=== PATIENT | female | born 1980 | race Caucasian/White ===

== ENCOUNTER 2021-05-20 09:45 | Outpatient (CLI) | payer BC, SELFPAY ==
--- NOTE | ~2021-05-20 | MM_ITS ---
EXAMINATION: MM screening rico BI w steffi HISTORY: Screening TECHNIQUE: Craniocaudal and mediolateral oblique 3-D tomosynthesis images were obtained and synthetic 2-D images were generated. CAD analysis was submitted and interpreted. COMPARISON: No prior mammogram is available for comparison at this institution. BREAST PARENCHYMAL COMPOSITION: The breasts are extremely dense, which lowers the sensitivity of mamm ography. FINDINGS: There is no evidence of suspicious mass, calcification, or architectural distortion to sugg est malignancy in either breast. There has been no suspicious interval change. IMPRESSION: 1. No mammographic evidence of malignancy. 2. Recommend routine screening mammography in one year. BI-RADS Category 1: Negative Reviewed, dictated and finalized at location A.
== END 2021-05-20 09:46 | disposition home or self-care (01) ==
LOC: ANHIMG 09:47
PROVIDERS: PCP Internal Medicine; Visit Provider Obstetrics & Gynecology
DX: Z12.31 Encounter for screening mammogram for malignant neoplasm of breast (principal)
CPT/HCPCS: 77063; 77067

== ENCOUNTER 2021-11-27 15:17 | Outpatient (CLI) | payer BC, SELFPAY ==
--- NOTE | ~2021-11-27 | US_ITS ---
US pelvic complete w TV DATE: 11/27/2021 16:23 INDICATION: Hypertrophic uterus TECHNIQUE: Real-time imaging via transabdominal and transvaginal approaches COMPARISON: None FINDINGS: The uterus measures 7.5 centers height, 4.7 cm AP and 5 cm transverse dimension. The centra l endometrial echo complex measures 10 mm AP dimension. There is a 6.2 x 8.2 x 5.7 cm heterogeneous complex largely solid mass with occasional cystic areas i n the right adnexal area; differential diagnosis includes large serosal fibroid versus right ovarian mass lesion.. Left ovary 2.2 x 2.2 x 2.4 cm with vascular flow. No free pelvic fluid collection is noted. IMPRESSION: 6.2 x 8.2 cm heterogeneous complex largely solid mass with occasional cystic areas in the right adnexal area; diffusion diagnosis includes cerebral sulci fibroid versus ovarian mass lesion. Consider further evaluation with CT abdomen pelvis examination or MRI pelvis. Reviewed, dictated and finalized at [facility]. Reviewed, dictated and finalized at location [facility]. HOUSE SPECIALIST IMPRESSION: 6.2 x 8.2 cm heterogeneous complex largely solid mass with occasion al cystic areas in the right adnexal area; diffusion diagnosis includes cerebra l sulci fibroid versus ovarian mass lesion. Consider further evaluation with CT abdomen pelvis examination or MRI pelvis.
== END 2021-11-27 15:18 | disposition home or self-care (01) ==
PROVIDERS: PCP Internal Medicine; Visit Provider Obstetrics & Gynecology
DX: N85.2 Hypertrophy of uterus (principal); N83.8 Other noninflammatory disorders of ovary, fallopian tube and broad ligament
CPT/HCPCS: 76830; 76856

== ENCOUNTER 2022-01-23 10:07 | Outpatient (CLI) | payer BC, SELFPAY | END 2022-01-23 10:08 | disposition home or self-care (01) | LOC: ANHLAB 10:09 | PROVIDERS: PCP Internal Medicine; Visit Provider Obstetrics & Gynecology | DX: Z01.818 Encounter for other preprocedural examination (principal); R10.2 Pelvic and perineal pain | CPT/HCPCS: 36415; 86850; 86900; 86901 ==

== ENCOUNTER 2022-01-27 08:34 | Inpatient (IN) | payer BC, SELFPAY ==
[2022-01-22 16:19] VITALS: BMI 22.2
--- NOTE | 2022-01-22 16:44 | PC.NURSE ---
Report to the Outpatient Waiting Room, entrance under the green pavilion located off [facility], at time 0800 on date 01/27/22. OR Time: 1000____. - You and your visitor will be asked a series of questions to screen for COVID 19 for your protection. - A mask is required within the hospital. Preoperative COVID Testing Requirements: No COVID Test needed if: (proof is required; if not received patient will have Rapid Test prior to entry) - Patient has received COVID Vaccine at least 14 days prior to procedure date or - Patient has positive COVID test result within last 90 days of surgery date. COVID Test needed if above criteria is not met If not COVID vaccinated a COVID test must be conducted within 72 hours of surgery and patient is asked to isolate self from time of testing until procedure. You will go to the [facility] for your COVID testing. The [facility] Testing site is located at the corner of [address] [facility]. You will only be called if COVID results are positive and your surgeon may reschedule your elective surgery date. Patients may have clear liquids (water, carbonated beverages, clear teas, apple juice) until 3 hours prior to surgery with a maximum of 20 ounces. - No food from midnight until time of surgery - Infants may have breast milk until 4 hours before surgery, formula 6 hours prior to surgery. - Children will be allowed to drink immediately following surgery. If applicable, please bring a bottle or sippy cup to assist with drinking. Juice, water, soda, and popsicles are readily available. For infants on formula, please bring formula the day of surgery. Pacifiers are allowed. Take the following medications with a SIP of water the morning of surgery: n/a Medications to discontinue per physician multivitamin Date to take last dose 01/24/22 Please no make-up, nail trinidadian, hairspray, perfume, deodorant, or body powder the day of surgery. No jewelry (including any body piercings) or valuables the day of surgery, leave them at home. Please take a shower or bath the night before, or the morning of, surgery with an antibacterial soap. Wear comfortable, loose fitting clothing. Children are encouraged to wear pajamas. - Jewelry must be removed prior to entering the operating room. Rings and piercings that are not removed may be cut off. - The hospital will not accept responsibility for valuables. - Please leave all valuables, including medications, at home the day of surgery. If you are going home after surgery, a licensed wrecking car driver must drive you home. - NO public transportation without another adult. - We recommend that an adult stay with you for 24 hours following discharge. - We also recommend that you do not drive, make important decision, drink alcoholic beverages, or take any drugs that were not prescribed by your health care provider for at least 24 hours after your discharge time. For Pediatric surgeries, we recommend two adults accompany the child home (only one inside the building at this time). One visitor will be allowed to accompany the patient into the hospital. Patients visitor will be instructed to remain with patient at all times or leave the building. We will allow the visitor to come back to the postoperative area when patient is ready. Follow any additional instructions given to you from your surgeon. Telephone instructions given to Ciara Gao and asked if any additional questions and then verbalized understanding. Patient advised to call surgeon office or pre surgery nurse liaison [phone] if any additional questions.
--- NOTE | 2022-01-26 07:11 | PM.IMHP ---
H&P: HPI History of Present Illness Date/Time: 01/26/22 07:11 Patient with history of increasing pain which started in October. The pain is on the left side. She also had been experiencing urinary pressure. No dysuria. Had some episodes of spotting premenstraully in the past. On exam the uterus was palpated irregular. Pelvic ultrasound showed a mass but could not differentiate if ovarian or uterine origin. Ca125 normal. Subsequent MRI showed 8cm pedunculated fibroid. She continues to have intermittent pain, cramping and pressure on bladder. She has been informed of options of fibroid embolization, myomectomy hysterectomy. She did get an endometrial biopsy due to spotting and it showed a possible polyp. She has been recommended for D and C hysteroscopy and removal of endometrial polyp. Chief Complaint: fibroid causing pain Review of Systems Review of Systems: All systems reviewed & are unremarkable except as noted in HPI and below Cardiovascular: Cardiovascular: Reports no additional cardiovascular complaints, Denies chest pain and Denies dyspnea Respiratory: Respiratory: Reports no additional respiratory complaints and Denies dyspnea Gastrointestinal: Gastrointestinal: Reports abdominal pain, Denies change in bowel habits, Denies diarrhea, Denies nausea and Denies vomiting Genitourinary: Genitourinary: Reports pelvic pain Musculoskeletal: Musculoskeletal: Reports back pain Integumentary/Breasts: Skin/Breast: Reports system reviewed and no additional complaints, except as docu Neurologic: Reports system reviewed and no additional complaints, except as documented [facility], [facility] Family History Family History Father Hypertension Grandparent Family history of coronary artery disease Diabetes mellitus Other Family history of cardiovascular disease Family history of malignant neoplasm of breast Social History Social History Smoking status: Never smoker Second hand tobacco smoke exposure: No Alcohol intake: current Substance use: never Living arrangements: with family Spiritual care concerns: No Meds Home Medications and Allergies Home Medications Medication Instructions Recorded Confirmed Type multivit with min-folic acid 1 tablet PO DAILY 01/22/22 01/22/22 History [Adult One Daily Multivitamin] Allergies Allergy/AdvReac Type Severity Reaction Status Date / Time No Known Allergies Allergy Verified 01/14/22 11:21 Exam Const: Orientation/consciousness: oriented to person and oriented to place HENMT: Head: normal to inspection Eyes: General: appearance normal, both eyes and all related structures Resp: Effort & Inspection: normal respiratory effort Auscultation: clear to auscultation bilaterally Cardio: Rate: regular rate Rhythm: regular rhythm GI: Inspection: normal to inspection GI Palp: No Rebound tenderness present : External Female Exam: normal external appearance Speculum Exam - Vagina: normal appearance of the vagina Speculum Exam - Cervix: normal appearance of the cervix Bimanual exam- vagina & uterus: other (uterus irreg shape 12-14 week) Bimanual Exam- Adnexa, other: other (nontender bilateral) Neuro: General: oriented to person and oriented to place Cognition (Neuro): normal cognition Extrem: General: normal to inspection Psych: Appearance: grossly normal and well kempt Assessment and Plan Assessment and plan (1) Fibroid uterus: Code(s): D25.9 - Leiomyoma of uterus, unspecified Status: Acute Assessment and Plan: Plan for abdominal myomectomy. (2) Endometrial polyp: Code(s): N84.0 - Polyp of corpus uteri Status: Acute Assessment and Plan: Diagnostic hysteroscopy and dilation and currettage and possibly myosure of endometrial lesion if necessary.
[2022-01-27] VITALS (12 sets, daily range): BP systolic 80–108; BP diastolic 49–68; PULSE 52–77; RESP 10–18; TEMP 36–36.9; O2SAT 98–100
[2022-01-27] MEDS: ACETAMINOPHEN 500 MG TABLET 1000 MG PO (08:11)
[2022-01-27] MEDS: KETOROLAC 15 MG/ML VIAL (*BKC) IV PUSH (08:51)
--- NOTE | 2022-01-27 08:59 | WPDHPUPDATE1 ---
History and Physical Update Update Date/Time: 01/27/22 08:59 History and Physical has been reviewed, including an updated exam of the patient. There are NO changes in the patient's condition. Risks, benefits, and alternatives have been discussed and questions answered. Patient agrees to proceed with procedure.
[2022-01-27] MEDS: LACTATED RINGERS 1,000 ML 30 ML IV CONT ×2 (09:00→11:55)
--- NOTE | 2022-01-27 09:57 | WPDANESEPPF ---
Anes - Initial Pre Proc Eval Procedure: Operation Date: 01/27/22 10:00 Proposed Procedures p Abdominal Myomectomy, - Fermin Ceja MD s Hysteroscopy, Dilatation and Curettage, Possible Myosure - Fermin Ceja MD Date/Time: 01/27/22 09:57 Surgeon: Fermin Ceja MD Pre Op Diagnosis: symptomatic fibroid uterus, endometrial polyp Patient Data Age: 41 Gender: F Height: 1.6 m Weight: 51.3 kg Last Vital Signs Temp 98 F 01/27/22 08:48 Pulse 74 01/27/22 08:48 Resp 16 01/27/22 08:48 BP 100/60 01/27/22 08:48 Pulse Ox 100 01/27/22 08:48 Allergies Allergy/AdvReac Type Severity Reaction Status Date / Time No Known Allergies Allergy Verified 01/27/22 08:08 Home Medications Medication Instructions Recorded Confirmed Type multivit with min-folic acid 1 tablet PO DAILY 01/22/22 01/27/22 History [Adult One Daily Multivitamin] Patient hx anesthesia problems: none Family hx anesthesia problems: none Results Review: All pre-operative results and documents have been reviewed as part of the pre-operative evaluation. [facility] Past Medical History Medical History (Updated 01/27/22 @ 09:58 by Kingsley Ron MD) H/O bronchitis Family History Family History Father Hypertension Grandparent Family history of coronary artery disease Diabetes mellitus Other Family history of cardiovascular disease Family history of malignant neoplasm of breast Social History Social History Smoking status: Never smoker Second hand tobacco smoke exposure: No Alcohol intake: current Substance use: never Living arrangements: with family Spiritual care concerns: No Anes - Eval Final PreProcedure Day of Procedure 01/27/22 09:57 Patient weight: normal Heart: regular rate and rhythm Lungs: clear to auscultation Airway: Mallampati scale class II Neurological: alert and oriented Last oral intake: >/= 8 hours ASA classification: II Emergent: no Anesthetic plan: proceed Anesthesia type and monitoring: general ETT and standard monitoring Results Review: All pre-operative results and documents have been reviewed as part of the pre-operative evaluation. Informed Consent: The patient's anesthetic plan and its attendant risks and benefits were discussed with the patient/family/POA. Questions were solicited and answers provided to the satisfaction of the patient/family/POA.
[2022-01-27] MEDS: ceFAZolin 2 GM/D5W 50 ML 2 GM/50 ML BAG IVPB (10:23)
[2022-01-27] MEDS: VASOPRESSIN INJ 20 UNITS/ML VIAL XX (10:50)
--- NOTE | 2022-01-27 12:08 | PM.OP ---
Procedure Note - Brief Procedure Note - Brief Date of procedure: 01/27/22 Pre-op diagnosis: symptomatic fibroid uterus, endometrial polyp Post-op diagnosis: Same Procedure performed: 1. Abdominal myomectomy Anesthesia: GETA Surgeon: Fermin Ceja MD Estimated blood loss (mL): 20 Drains: No Packing: No Pathology: Yes (1. Pedunculated fibroid measuring approximately 8.5cm 2. Endometrial currettings.) Complications: No immediate complications Condition: Stable Disposition: PACU
[2022-01-27] MEDS: fentaNYL CITRATE INJ (*CRX) 100 MCG/2 ML VIAL 25 MCG IV PUSH ×4 (12:14→13:26)
--- NOTE | 2022-01-27 12:42 | SUR.PHASEI ---
1235: Called office and they are close until 1pm for lunch. Left a message on cell stating, I need a transfer order.
--- NOTE | 2022-01-27 13:38 | PC.NURSE ---
This patient, Ciara Gao, was received from PACU per bed to room 279. Patient/family oriented to unit policies and routines
--- NOTE | 2022-01-27 15:19 | W.PM.PROC2 ---
Procedure Note - Detailed Date of Procedure 01/27/22 Pre-op Diagnosis symptomatic fibroid uterus, endometrial polyp Post-op Diagnosis Same Procedure Performed 1. Abdominal myomectomy 2. Diagnostic hysteroscopy and dilation and curettage Surgeon Fermin Ceja MD Anesthesia General Indications patient with pelvic pain pain starting in October which was moderate. She had a subsequent pelvic ultrasound due to feeling a possibly enlarged ovary and the ultrasound could not determine if she had a fibroid or complex ovarian cyst. She had a subsequent MRI which showed a pedunculated fibroid approximately 8 cm. She continues to have some intermittent moderate pain and has opted to get it removed. She also had an endometrial biopsy as part of her workup due to having some spotting and it showed a possible endometrial polyp and she was recommended for a hysteroscopy and removal of endometrial polyp if present and dilation and curettage. Findings 8-1/2 cm growth which looks like a necrotic somewhat soft fibroid coming off the left anterior uterus which had a vascular pedicle attached to it. The right and left ovary were normal the right and left fallopian tubes were normal the rest of the uterus was normal. On the hysteroscopy the uterus sounded to 7.5cm the cavity appeared normal there was an area anterior uterus that appeared to have more of a thicker proliferative endometrium then the rest of the cavity. Moderate tissue was obtained with the sharp curettage. Description of Procedure After informed consent was obtained patient was taken to the operating room and general endotracheal anesthesia was administered. An exam under anesthesia was performed and a mobile mass at the top of the uterus was palpated. No adnexal masses palpated. She was prepped and draped in sterile fashion and placed in low lithotomy position. Attention was turned to the vagina speculum was inserted single-tooth tenaculum placed on the anterior lip of the cervix and acorn uterine manipulator was placed into the cervical canal. A Henson catheter at this time was placed by the nurse. Using a new sterile gloves attention was turned to the abdomen a Pfannenstiel skin incision was made with the scalpel the subcutaneous tissue was dissected down with to the fascia. The fascia was incised in the midline and extended bilaterally with Paz scissors. The fascia was from the rectus muscle superiorly and inferiorly bluntly and sharply with the cautery. The peritoneum was tented up with Sepideh clamps and Metzenbaum scissors were used to incise the peritoneum sharply. This was done at the anterior layer the posterior layer was entered bluntly. The pelvic organs were visualized. A wet sponge was used to retract the intestines in order to visualize the uterus and the growth. The uterus was visualized and there was noted to be the mass coming off of the left side of the uterus with a pedicle. The side of attachment and the pedicle was firm at the base. The rest of the pelvic organs were visualized. Two clamps were placed at the base of the pedicle and the mass was excised with cautery intact. Two Fabien stitches of 0 Vicryl were used to ligate the pedicle. Hemostasis was noted at the pedicle. The lap was removed from the abdomen.The pelvis was irrigated. The muscle bellies approximated to the midline well. Hemostasis was obtained at the muscle bellies with cautery. The fascia was closed in a running fashion with 0 Vicryl. The subcutaneous tissue was irrigated hemostasis obtained with cautery the subcutaneous tissue was approximated with 3 0 Vicryl. The skin incision was closed in a subcuticular fashion with 4 O Vicryl. Dermabond was applied to the incision. The sponge count was correct. Attention was then turned to the vagina. Speculum was inserted. The acorn uterine manipulator was removed. The Henson catheter was removed. The cervix was dilated to an 8 Raymond dilator. Th
[2022-01-27] MEDS: KETOROLAC 30 MG/ML VIAL (*BKC) IV PUSH ×2 (15:23→21:10)
[2022-01-27] MEDS: DEXTROSE 5%/0.45% SOD CHL 1,000 ML 125 ML (15:25)
[2022-01-28] MEDS: KETOROLAC 30 MG/ML VIAL (*BKC) IV PUSH (03:12)
[2022-01-28 03:15] VITALS: BP 93/52; PULSE 75; RESP 16; TEMP 36.9; O2SAT 100
--- NOTE | 2022-01-28 07:20 | WPDANESPN ---
Anes - Prog Note Post-Op Date/Time: 01/28/22 07:20 Cardiovascular status: normal Respiratory status: normal Airway patency: baseline Mental status: baseline Post-Op hydration status: normal Vital Signs: Last Vital Signs Temp 36.9 C 01/28/22 03:15 Pulse 75 01/28/22 03:15 Resp 16 01/28/22 03:15 BP 93/52 L 01/28/22 03:15 Pulse Ox 100 01/28/22 03:15 Pain Score (VAS): 0 I/O: Intake & Output 01/27/22 01/27/22 01/28/22 15:59 23:59 07:59 Intake Total 850 2220 Output Total 600 Balance 850 1620 Post-procedural complaints: none Patient Feedback: Patient satisfied with anesthetic care.
[2022-01-28 07:30] VITALS: BP 93/62; PULSE 72; RESP 18; TEMP 36.6; O2SAT 99
--- NOTE | 2022-01-28 08:41 | PM.GYNPNOP ---
COLD ROLLER - A/P Assessment and plan (1) Status post myomectomy: Code(s): Z98.890 - Other specified postprocedural states Status: Acute Assessment and Plan: she is doing well. Encourage ambulation. Will see how she does with oral pain medication. Anticipate discharge later today. Postoperative Procedures: Procedures Operation Date: 01/27/22 10:00 Actual Procedure Side Surgeon p Abdominal Myomectomy Not Applicable Fermin Ceja MD s Hysteroscopy, Dilatation and Curettage, Possible Myosure Not Applicable Fermin Ceja MD Time Spent With Patient Time: Total time spent is greater than 50% in coordination of care (as documented) at patient's floor/unit and/or counseling patient: Time with patient: less than 15 minutes COLD ROLLER- PN:Subj Post-Op Subjective Date/time seen: 01/28/22 08:41 Interval history: She has set up in a chair. She reports positive flatus. She has had a good pain control with the IV pain medicines. Has urinated without problems. Mild spotting. No lightheadedness or did she has ambulated in the room without problem. Subjective: pain is well controlled and patient is tolerating oral intake Review of Systems Review of Systems: All systems reviewed & are unremarkable except as noted in HPI and below Cardiovascular: Cardiovascular: Reports no additional cardiovascular complaints Respiratory: Respiratory: Reports no additional respiratory complaints Gastrointestinal: Gastrointestinal: Reports belching, Denies nausea and Denies vomiting Genitourinary: Genitourinary: Reports no additional female genitourinary complaints Musculoskeletal: Musculoskeletal: Reports no additional musculoskeletal complaints Exam Const: General: comfortable and no acute distress Orientation/consciousness: oriented to person, oriented to place and oriented to time Resp: Auscultation: clear to auscultation bilaterally Cardio: Rate: regular rate Rhythm: regular rhythm GI: GI Palp: Yes Soft to palpation and No Tenderness to palpation present (GI) Auscultation: normal bowel sounds Other: Incision healing well Neuro: General: oriented to person, oriented to place and oriented to time Extrem: General: no calf tenderness Psych: Mental Status: mental status grossly normal COLD ROLLER - PN: Obj Data Vital Signs Vital Signs: Vital Signs - 24 hr 01/27/22 08:48 01/27/22 11:55 01/27/22 12:10 Temperature 98 F 97.5 F L Pulse Rate 74 77 52 L Respiratory Rate 16 11 L 10 L Blood Pressure 100/60 108/68 84/49 L Pulse Oximetry 100 100 100 01/27/22 12:25 01/27/22 12:40 01/27/22 12:55 Temperature Pulse Rate 62 64 55 L Respiratory Rate 18 12 10 L Blood Pressure 89/60 L 93/50 L 83/59 L Pulse Oximetry 100 99 98 01/27/22 13:10 01/27/22 13:25 01/27/22 13:45 Temperature 96.8 F L Pulse Rate 55 L 54 L 56 L Respiratory Rate 12 10 L 18 Blood Pressure 92/56 L 88/55 L 80/52 L Pulse Oximetry 99 99 100 01/27/22 17:15 01/27/22 19:00 01/27/22 23:50 Temperature 98.2 F 98.5 F 98.4 F Pulse Rate 68 68 55 L Respiratory Rate 16 16 16 Blood Pressure 85/54 L 92/62 L 83/54 L Pulse Oximetry 98 100 100 01/28/22 03:15 01/28/22 07:30 Temperature 98.5 F 97.9 F Pulse Rate 75 72 Respiratory Rate 16 18 Blood Pressure 93/52 L 93/62 L Pulse Oximetry 100 99 Intake/Output Intake/Output: Intake & Output 01/25/22 01/26/22 01/27/22 01/28/22 23:59 23:59 23:59 23:59 Intake Total 3070 Output Total 600 Balance 2470 Meds/Results Medications: Active Medications Generic Name Dose Route Start Last Admin Trade Name Freq PRN Reason Stop Dose Admin Hydrocodone Bitart/Acetaminophen 1 tab 01/27/22 12:10 Hydrocodone/Acetaminophen (*Crx) 5-325 Mg Tablet PO Q3H PRN Pain Rated 5 or Less Ketorolac Tromethamine 30 mg 01/27/22 12:10 01/28/22 03:12 Ketorolac 30 Mg/Ml Vial (*Bkc) IV PUSH 02/01/22 12:09 30 mg Q6H PRN Administration Pain Rated 4-6 Naloxone HCl 0.1 mg 03
[2022-01-28] MEDS: IBUPROFEN 600 MG TABLET PO (09:30)
[2022-01-28] MEDS: HYDROcodone/acetaminophen (*CRX) 5-325 MG TABLET 1 TAB PO ×2 (09:32→13:16)
--- NOTE | 2022-01-28 12:20 | PM.DS ---
DS: Admitting Diagnosis Discharge Date 01/28/22 Admitting Diagnosis 1. Symptomatic fibroid uterus 2. Endometrial polyp DS: Discharge Diagnosis Discharge Diagnosis (1) Fibroid uterus: Code(s): D25.9 - Leiomyoma of uterus, unspecified Status: Acute (2) Endometrial polyp: Code(s): N84.0 - Polyp of corpus uteri Status: Acute DS: Summary Hospital Course Reason for hospitalization: Myomectomy procedure Hospital Course: patient admitted on 01/27/2022 for planned abdominal myomectomy and hysteroscopy D&C possible MyoSure. She underwent an uncomplicated abdominal myomectomy with removal of a large pedunculated fibroid. Hysteroscopy was uncomplicated. Postoperatively the patient did well on the day of surgery she started tolerating liquids. She did ambulate spontaneously within 8 hours of surgery. Had adequate intake of regular food on postop day 1 was ambulating without problems on postop day 1 had adequate pain control with her pain medication. Positive flatus. She was doing well and was discharged home on postop day 1. Discharge precautions discussed. Time spent discussing smoking cessation with patient: 3 to 10 minutes Time Spent with Patient Time attestation: Total time spent providing and/or coordinating discharge services: Exam Const: General: comfortable and no acute distress HENMT: Head: normal to inspection Chest: Other: heart Regular rate rhythm Resp: Effort & Inspection: normal respiratory effort Auscultation: clear to auscultation bilaterally GI: Other: incision clean dry and intact Neuro: General: oriented to person, oriented to place and oriented to time Extrem: General: normal to inspection ( no calf tenderness no swelling.) Psych: Appearance: grossly normal DS: Data Data Completed and Pending Pending studies at discharge: Pending at discharge 01/27/22 11:53 Surgical [PTH] Routine Surgical [PTH] Routine Discharge Plan Discharge Attending physician on discharge: Fermin Ceja Consulting providers: Kingsley Ron Discharging Clinician: Fermin Ceja Anticipated Discharge Date/Time: 01/28/22 12:16 Patient Disposition: Home, Self-Care Activity: may shower, no straining and may drive after 2 weeks Diet: regular Discharge Instructions: no lifting. May take [id number] ibuprofen for pain. Take prescription pain medicine for pain greater than 5 out of 10. Call for fever which is temperature over 100.4. Call for any spreading redness or any drainage from incision. Call for any leg pain or redness. Call if any persistent nausea or vomiting. May take MiraLax if having trouble having a bowel movement. Patient Instructions: Antibiotic Form Stand Alone Forms: General Discharge Information Follow-up/Referrals: Fermin Ceja MD [Physician] - 1 Week Discharge Medications: New hydrocodone-acetaminophen 5-325 mg Tablet 1 tablet PO Q3H PRN (Reason: pain) Qty: 25 RF: 0 Continued multivit with min-folic acid [Adult One Daily Multivitamin] 0.4 mg Tablet 1 tablet PO DAILY RF: 0 Date of admission: 01/27/22 08:34 Primary Care Provider: Mitch,Arnie Ibrahim Admitting Provider: Fermin Ceja Attending physician on admission: Fermin Ceja Condition: Stable
== END 2022-01-28 13:30 | disposition home or self-care (01) | DRG 743 ==
LOC: ANHOB2 14:00
PROVIDERS: Admitting Provider Obstetrics & Gynecology; PCP Internal Medicine; Visit Provider Obstetrics & Gynecology
PROC: 0UT94ZZ Resection of Uterus, Percutaneous Endoscopic Approach (ICD-10-PCS; principal; 2022-01-27 10:00)
PROC: 0U5B8ZZ Destruction of Endometrium, Via Natural or Artificial Opening Endoscopic (ICD-10-PCS; CPT 58563; 2022-01-27 10:00)
DX: D25.9 Leiomyoma of uterus, unspecified (principal); N84.0 Polyp of corpus uteri
CPT/HCPCS: 88305; A9270; J0690; J1100; J1885; J2250; J2405; J2704; J2710; J3010; J7030; J7120

== ENCOUNTER 2022-08-09 09:37 | Outpatient (CLI) | payer BC, SELFPAY ==
--- NOTE | ~2022-08-09 | MM_ITS ---
EXAMINATION: MM screening rico BI w steffi HISTORY: Screening TECHNIQUE: Craniocaudal and mediolateral oblique 3-D tomosynthesis images were obtained and synthetic 2-D images were generated. CAD analysis was submitted and interpreted. COMPARISON: 05/20/2021 BREAST PARENCHYMAL COMPOSITION: The breasts are heterogeneously dense, which may obscure small masses FINDINGS: There is a subtle focal asymmetry which appears new medially in the right breast on CC view . The left breast is stable without evidence for malignancy. IMPRESSION: 1. New focal asymmetry medially in the right breast on CC view. 2. Additional mammographic views and possible breast ultrasound are recommended. BI-RADS Category 0: Incomplete: Needs additional imaging evaluation. Reviewed, dictated and finalized at location A. IMPRESSION: 1. New focal asymmetry medially in the right breast on CC view. 2. Additional mammographic views and possible breast ultrasound are recommended . BI-RADS Category 0: Incomplete: Needs additional imaging evaluation.
== END 2022-08-09 09:38 | disposition home or self-care (01) ==
LOC: ANHIMG 09:39
PROVIDERS: PCP Internal Medicine; Visit Provider Obstetrics & Gynecology
DX: Z12.31 Encounter for screening mammogram for malignant neoplasm of breast (principal); R92.8 Other abnormal and inconclusive findings on diagnostic imaging of breast
CPT/HCPCS: 77063; 77067

== ENCOUNTER 2022-09-06 11:19 | Outpatient (CLI) | payer BC, SELFPAY ==
--- NOTE | ~2022-09-06 | MMUS_ITS ---
EXAMINATION: MM diagnostic rico RT w steffi, US breast RT complete HISTORY: New focal asymmetry reported medially in the right breast on screening craniocaudal view of 08/09/2022 TECHNIQUE: Additional 3-D tomosynthesis images of the right breast were performed and synthetic 2-D i mages were generated. CAD analysis was submitted and interpreted. High resolution complete right [address] ultrasound including all 4 quadrants and subareolar area was performed. COMPARISON: 08/09/2022 bilateral screening mammogram FINDINGS: MAMMOGRAPHIC FINDINGS: No reproducible mass is detected. No architectural distortion is noted. No malignant calcification, s kin thickening or retraction. ULTRASOUND: No suspicious mass or shadowing is evident in the right breast. No cyst is identified. IMPRESSION: 1. No mammographic evidence of malignancy 2. . Routine mammographic screening is recommended BI-RADS Category 1: Negative Reviewed, dictated and finalized at location A. MACOMETRICIAN IMPRESSION: 1. No mammographic evidence of malignancy 2. . Routine mammographic screening is recommended BI-RADS Category 1: Negative
== END 2022-09-06 11:20 | disposition home or self-care (01) ==
LOC: ANHIMG 11:24
PROVIDERS: PCP Internal Medicine; Visit Provider Obstetrics & Gynecology
DX: R92.8 Other abnormal and inconclusive findings on diagnostic imaging of breast (principal)
CPT/HCPCS: 76641; 77061; 77065; G0279

== ENCOUNTER 2023-12-29 16:36 | Outpatient (CLI) | payer BC, SELFPAY ==
--- NOTE | ~2023-12-29 | MM_ITS ---
EXAMINATION: MM screening rico BI w steffi HISTORY: Screening mammogram TECHNIQUE: Craniocaudal and mediolateral oblique 3-D tomosynthesis images were obtained and synthetic 2-D images were generated. CAD analysis was submitted and interpreted. COMPARISON: 09/06/2022, 08/09/2022, 05/20/2021 BREAST PARENCHYMAL COMPOSITION:Dense: The breasts are extremely dense, which lowers the sensitivity o f mammography. FINDINGS: No suspicious mass, calcification, or architectural distortion are identified in either breonna ast to suggest malignancy. There has been no suspicious interval change. IMPRESSION: No mammographic evidence of malignancy. Recommend routine screening mammography in one year. BI-RADS Category 1: Negative Reviewed, dictated and finalized at location . NG DEMONSTRATOR
== END 2023-12-29 16:37 | disposition home or self-care (01) ==
PROVIDERS: Visit Provider Obstetrics & Gynecology
DX: Z12.31 Encounter for screening mammogram for malignant neoplasm of breast (principal)
CPT/HCPCS: 77063; 77067

== ENCOUNTER 2025-05-08 15:33 | Outpatient (CLI) | payer BC, SELFPAY ==
--- NOTE | ~2025-05-08 | MM_ITS ---
EXAMINATION: MM screening rico BI w steffi HISTORY: Screening mammogram TECHNIQUE: Craniocaudal and mediolateral oblique 3-D tomosynthesis images were obtained and synthetic 2-D images were generated. CAD analysis was submitted and interpreted. COMPARISON: 12/29/2023, 08/09/2022, 05/20/2021 BREAST PARENCHYMAL COMPOSITION:Dense: The breasts are extremely dense, which lowers the sensitivity o f mammography. FINDINGS: No suspicious mass, calcification, or architectural distortion are identified in either breonna ast to suggest malignancy. There has been no suspicious interval change. IMPRESSION: No mammographic evidence of malignancy. Recommend routine screening mammography in one year. BI-RADS Category 1: Negative Reviewed, dictated and finalized at location .
--- OUTSIDE RECORDS SUMMARY | 2025-05-08 16:01 | XMS_ITS | Clinical Summary ---
Author Organization [facility] Address [address] [place] [id number] Care Team Providers Care Multiple Resaw Operator Name Role Phone Arnie Meyer MD Primary Care Provider [phone] Immunizations Immunization Administration Dates Next Due MODERNA COVID-19 (12+) MRNA, LNP-S, PF, 100 MCG/ 0.5 ML DOSE 01/02/2021,12/05/2020 Social History Tobacco Use Types Packs/Day Years Used Date Smoking Tobacco: Never Assessed Comments Unknown Sex and Gender Information Value Date Recorded Sex Assigned at Not on file Legal Sex Female 4:35 PM CDT Gender Identity Not on file Sexual Orientation Not on file Plan of Treatment Health Maintenance Due Date Last Done Comments Cervical Cancer Screening Pa p Smear (Age 30 to 64) Every 3 Years 1980 Annual Physical 1983 Hepatitis C 1998 DTaP, Tdap and Td Vaccines ( 1 - Tdap) 1999 Hepatitis B Vaccines (1 of 3 - 19+ 3-dose series) 1999 Cervical Cancer Screening Pa p with HPV Testing (Age 30 to 64) Every 5 Years 2010 Cervical Cancer Screening wi th HPV 2010 Mammogram Screening 2020 COVID-19 Vaccine (3 - 2023-2 5 season) 2024 01/02/2021, 12/05/2020 HPV Vaccines Aged Out No longer eligi ble based on patient's age to complete this topic Meningococcal B Vaccine Aged Out No l onger eligible based on patient's age to complete this topic Meningococcal Vaccine Aged Out No odessa leah eligible based on patient's age to complete this topic Pneumococcal Vaccine: Pediatrics (0 to 5 Years) and At-Risk Patients (6 to 49 Years) Aged Out No longer eligible b ased on patient's age to complete this topic RSV Immunizations Under 20 Months Aged Out No longer eligible b ased on patient's age to complete this topic Insurance [address] [address] Care Teams Multiple Resaw Operator Relationship Specialty Start Date End Date Arnie Meyer MD [address] [place] [id number] PCP - General INTERNAL MEDICINE 12/09/21
== END 2025-05-08 15:34 | disposition home or self-care (01) ==
LOC: ANHIMG 15:58
PROVIDERS: Visit Provider Obstetrics & Gynecology
DX: Z12.31 Encounter for screening mammogram for malignant neoplasm of breast (principal)
CPT/HCPCS: 77063; 77067